=== PATIENT | female | born 1960 | race Caucasian/White ===

== ENCOUNTER 2017-09-01 14:26 | Emergency (ER) | payer MEDICAID ==
--- NOTE | 2017-09-01 15:31 | EDM.PDOC ---
ED HPI GENERAL MEDICAL PROBLEM - General Chief Complaint: General Stated Complaint: FEVER Time Seen by Provider: 09/01/17 15:00 Source of Information: Reports: Patient History Limitations: Reports: No Limitations - History of Present Illness INITIAL COMMENTS - FREE TEXT/NARRATIVE: Tammi Stevens comes into [facility] ED with a 2 day hx of fevers, some dizziness, and malaise. There is no reported headache, sore throat, cough, chest pain or SOB. There has been no nausea or vomiting, or voiding sxs. She stays at home and does watch 1 granddaughter. She has been taking Ibuprofen for fevers which has been partially effective. Headache Pain Score (Numeric/FACES): 6 - Related Data Allergies Allergy/AdvReac Type Severity Reaction Status Date / Time almond Allergy Airway Verified 09/01/17 14:52 Tightness aspartame Allergy Airway Verified 08/10/13 01:55 Tightness Home Meds: Home Meds Albuterol [Proventil HFA] 2 puff INH Q4H PRN #1 inhaler 08/09/13 [Rx] Celecoxib [CeleBREX] 200 mg PO DAILY 08/10/13 [History] Furosemide 20 mg PO DAILY 08/10/13 [History] Pantoprazole Sodium 40 mg PO DAILY 08/10/13 [History] Albuterol Sulfate [Albuterol Sulfate HFA] 8.5 gm IH Q4H #1 hfa.aer.ad 12/04/14 [ Rx] Azithromycin 250 mg PO DAILY #4 tablet 12/04/14 [Rx] Loratadine 10 mg PO DAILY #30 tablet 12/04/14 [Rx] predniSONE [Prednisone] 20 mg PO DAILY #7 tablet 12/04/14 [Rx] ED ROS GENERAL - Review of Systems Review Of Systems: ROS reveals no pertinent complaints other than HPI. ED EXAM, GENERAL - Physical Exam Exam: See Below Exam Limited By: No Limitations General Appearance: Alert, WD/WN, No Apparent Distress, Obese Eye Exam: Bilateral Eye: Conjunctival Injection, EOMI, PERRL Ears: Normal External Exam, Normal TMs Nose: Normal Inspection Throat/Mouth: Normal Inspection, Normal Lips, Normal Teeth, Normal Gums, Normal Oropharynx, Normal Voice, No Airway Compromise Head: Normocephalic Neck: Normal Inspection, Supple, Non-Tender Respiratory/Chest: No Respiratory Distress, Lungs Clear, Normal Breath Sounds, No Accessory Muscle Use, Chest Non-Tender Cardiovascular: Regular Rate, Rhythm, No Edema, No Murmur GI/Abdominal: Normal Bowel Sounds, Non-Tender, No Organomegaly, No Distention, No Mass (Female) Exam: Deferred Rectal (Female) Exam: Deferred Back Exam: Normal Inspection Extremities: Normal Inspection Neurological: Alert, Oriented, CN II-XII Intact, Normal Cognition, No Motor/ Sensory Deficits Psychiatric: Normal Affect, Normal Mood Skin Exam: Warm, Dry Lymphatic: No Adenopathy Course - Vital Signs Text/Narrative:: Following assessment at the [facility] ED, screening labs including CBC, BMP, and UA were obtained. There is some elements of the UA suggestive of a UTI, and Tammi Stevens was administered Bactrim DS 2 tabs pending results of UC. Last Recorded V/S: Last Vital Signs Temp 37.5 C 09/01/17 14:35 Pulse 70 09/01/17 14:35 Resp 20 09/01/17 14:35 BP 107/46 L 09/01/17 14:35 Pulse Ox 97 09/01/17 14:35 - Orders/Labs/Meds Orders: Active Orders 24 hr Category Date Time Status CBC WITH AUTO DIFF [HEME] Stat Lab 09/01/17 15:35 Results CULTURE URINE [RM] Stat Lab 09/01/17 16:11 Ordered URINALYSIS W/MICROSCOPIC [UA W/MICROSCOPIC] [URIN] Stat Lab 09/01/17 15:45 Ordered Sulfamethoxazole/Trimethoprim [Septra DS] Med 09/01/17 16:16 Once 2 tab PO ONETIME ONE Labs: Laboratory Tests 09/01/17 09/01/17 09/01/17 Range/Units 15:35 15:35 15:45 WBC 12.8 H (4.5-12.0) X10-3/uL RBC 4.35 (3.23-5.20) x10(6)uL Hgb 13.1 (11.5-15.5) g/dL Hct 39.0 (30.0-51.3) % MCV 89.7 (80-96) fL MCH 30.1 (27.7-33.6) pg MCHC 33.5 (32.2-35.4) g/dL RDW 14.7 (11.5-15.5) % Plt Count 214 (125-369) X10(3)uL MPV 8.2 (7.4-10.4) fL Add Manual Diff Yes Sodium 138 (135-145) mmol/L Potassium 3.9 (3.5-5.3) mmol/L Chloride 103 (100-110) mmol/L Carbon Dioxide 28 (21-32) mmol/L BUN 25 H (7-18) mg/dL Creatinine 1.2 H (0.55-1.02) mg/dL Est Cr Clr Drug Dosing 40.42 mL/min Estimated GFR (MDRD) 46 L (>60) BUN/Creatinine Ratio 20.8 H (9-20) Glucose 142 H (80-116) mg/dL Calcium 8.8 (8.6-10.2) mg/dL Urine Color Yellow (YELLOW) Urine Appearance Cloudy (CLEAR) Urine pH 7.0 H (5.0-6.5) Ur Specific [place] 1.010 (1.010-1.025) Urine Protein Negative (NEGATIVE) mg/dL Urine Glucose (UA) Normal (NEGATIVE) mg/dL Urine Ketones Negative (NEGATIVE) mg/dL Urine Occult Blood Moderate H (NEGATIVE) Urine Nitrite Negative (NEGATIVE) Urine Bilirubin Negative (NEGATIVE) Urine Urobilinogen Normal (NEGATIVE) mg/dL Ur Leukocyte Esterase Large H (NEGATIVE) Urine RBC 5-10 (0) Urine WBC 10-20 H (0) Ur Squamous Epith Cells Few H (NS,R,O) Urine Bacteria Many H (NS) Departure - Departure Time of Disposition: 16:19 Disposition: Home, Self-Care 01 Condition: Fair Clinical Impression: UTI, Urinary tract infectious disease, Febrile illness, acute - Discharge Information Referrals: Adriana German PA [Primary Care Provider] - Forms: ED Department Discharge - Problem List & Annotations (1) Febrile illness, acute SNOMED Code(s): 618650606 Code(s): R50.9 - FEVER, UNSPECIFIED Status: Acute Current Visit: Yes Annotation/Comment:: Tammi Stevens will continue to monitor temps and utilize routine fever therapy, hydration, and rest. (2) UTI, Urinary tract infectious disease SNOMED Code(s): 63553754 Code(s): N39.0 - URINARY TRACT INFECTION, SITE NOT SPECIFIED Status: Acute Current Visit: Yes Annotation/Comment:: Possible UTI, UC pending. She will follow up this weekend. - Problem List Review Problem List Initiated/Reviewed/Updated: Yes - My Orders Last 24 Hours: My Active Orders 09/01/17 15:35 CBC WITH AUTO DIFF [HEME] Stat 09/01/17 15:45 URINALYSIS W/MICROSCOPIC [UA W/MICROSCOPIC] [URIN] Stat 09/01/17 16:11 CULTURE URINE [RM] Stat 09/01/17 16:16 Sulfamethoxazole/Trimethoprim [Septra DS] 2 tab PO ONETIME ONE - Assessment/Plan Last 24 Hours: My Active Orders 09/01/17 15:35 CBC WITH AUTO DIFF [HEME] Stat 09/01/17 15:45 URINALYSIS W/MICROSCOPIC [UA W/MICROSCOPIC] [URIN] Stat 09/01/17 16:11 CULTURE URINE [RM] Stat 09/01/17 16:16 Sulfamethoxazole/Trimethoprim [Septra DS] 2 tab PO ONETIME ONE Plan: Follow up this weekend.
[2017-09-01] MEDS ORDERED: Sulfamethoxazole/Trimethoprim 800-160 MG Tab PO ONE (16:16)
[2017-09-01 16:43] VITALS: BP 141/70
== END 2017-09-01 16:40 | disposition home or self-care (01) ==
LOC: FB.ED 14:26
DX: N39.0 Urinary tract infection, site not specified (principal); Z79.899 Other long term (current) drug therapy; Z91.018 Allergy to other foods; Z88.8 Allergy status to other drugs, medicaments and biological substances
CPT/HCPCS: 36415; 80048; 81001; 85025; 87086; 87088; 87186; 99284; A9270

== ENCOUNTER 2018-10-02 06:22 | Emergency (ER) | payer MEDICAID ==
[2018-10-02] MEDS ORDERED: Diltiazem IR 30 MG Tab PO ONE (06:47)
[2018-10-02] MEDS ORDERED: Diltiazem 25 MG/5 ML SDV IVPUSH ONE (06:48)
[2018-10-02] MEDS ORDERED: Sodium Chloride 0.9% 10 ML Syringe FLUSH PRN (06:51)
--- NOTE | 2018-10-02 06:59 | EDM.PDOC ---
ED HPI GENERAL MEDICAL PROBLEM - General Chief Complaint: Cardiovascular Problem Stated Complaint: SOB Time Seen by Provider: 10/02/18 06:40 Source of Information: Reports: Patient, Old Records History Limitations: Reports: No Limitations - History of Present Illness INITIAL COMMENTS - FREE TEXT/NARRATIVE: Tammi comes into [facility] ED by POV with new onset sxs of chest pains in the upper chest, palpitations, dizziness, weakness, and some SOB this am. There is no fever, chills, sweats, wheezes, cough, or abdominal pain. She has no prior medical hx of cardiac dysrhythmia, cardiomyopathy, or valvular defect. She does not see a medical provider routinely. She does have a PMH of asthma, chronic dependent edema and morbid obesity. chest Pain Score (Numeric/FACES): 6 - Related Data Allergies Allergy/AdvReac Type Severity Reaction Status Date / Time almond Allergy Airway Verified 09/01/17 14:52 Tightness aspartame Allergy Airway Verified 08/10/13 01:55 Tightness Home Meds: Home Meds Albuterol [Proventil HFA] 2 puff INH Q4H PRN #1 inhaler 08/09/13 [Rx] Furosemide 40 mg PO DAILY 08/10/13 [History] Pantoprazole Sodium 40 mg PO DAILY 08/10/13 [History] Cyclobenzaprine [Flexeril] 10 mg PO TID PRN 10/11/17 [History] Meloxicam 7.5 mg PO DAILY 10/11/17 [History] Past Medical History HEENT History: Reports: Impaired Vision Cardiovascular History: Reports: Other (See Below) Other Cardiovascular History: SX CHRONIC EDEMA Respiratory History: Reports: Asthma Gastrointestinal History: Reports: G[employer] History: Reports: Musculoskeletal History: Reports: Arthritis, Back Pain, Chronic Endocrine/Metabolic History: Reports: Obesity/BMI 30+ Immunologic History: Reports: Other (See Below) Other Immunologic History: HX MRSA - Past Surgical History GI Surgical History: Reports: Cholecystectomy, Hernia, Abdominal Other GI Surgeries/Procedures: MULTIPLE HERNIORRAPHIES Female Surgical History: Reports: Hysterectomy, Tubal Ligation Social & Family History - Family History Family Medical History: Noncontributory - Caffeine Use Caffeine Use: Reports: None Caffeine Use Comment: Very rarely drinks soda. ED ROS GENERAL - Review of Systems Review Of Systems: See Below Constitutional: Reports: Malaise, Weakness HEENT: Reports: No Symptoms Respiratory: Reports: Shortness of Breath Cardiovascular: Reports: Chest Pain, Edema, Lightheadedness, Palpitations Endocrine: Reports: No Symptoms GI/Abdominal: Reports: No Symptoms : Reports: No Symptoms Musculoskeletal: Reports: No Symptoms Skin: Reports: No Symptoms Neurological: Reports: Dizziness Psychiatric: Reports: Anxiety Hematologic/Lymphatic: Reports: No Symptoms Immunologic: Reports: No Symptoms ED EXAM, GENERAL - Physical Exam Exam: See Below Exam Limited By: No Limitations General Appearance: Alert, WD/WN, Anxious, Mild Distress, Obese Eye Exam: Bilateral Eye: EOMI, Normal Inspection, PERRL Ears: Normal External Exam Nose: Normal Inspection Throat/Mouth: Normal Inspection, Normal Lips, Normal Oropharynx, Normal Voice, No Airway Compromise Head: Normocephalic Neck: Normal Inspection, Supple, Non-Tender, Full Range of Motion Respiratory/Chest: No Respiratory Distress, Lungs Clear, No Accessory Muscle Use , Chest Non-Tender, Decreased Breath Sounds Cardiovascular: No Gallop, No JVD, No Murmur, Tachycardia, Irregularly Irregular GI/Abdominal: Normal Bowel Sounds, Soft, Non-Tender, No Organomegaly, No Distention, No Mass (Female) Exam: Deferred Rectal (Female) Exam: Deferred Back Exam: Normal Inspection Extremities: Normal Inspection Neurological: Alert, Oriented, CN II-XII Intact, Normal Cognition, No Motor/ Sensory Deficits Psychiatric: Normal Affect, Anxious Skin Exam: Warm, Dry, Intact, Normal Color, No Rash, Other (dependent edema, chronic) Lymphatic: No Adenopathy Course - Vital Signs Text/Narrative:: Following assessment, IV access was obtained and a 12 lead EKG detected Atrial Fibrillation with RVR, rate 170-180's, 02 sats 95% on RA. I administered Cardiazem 33 mg IV over 2 minutes, with subsequent rate reduction into the 120' s within 5 minutes, and cardioversion within 30 minutes. She remained stable throughout the remainder of the ED visit. A portable Chest x ray was satisfactory. Follow up EKG noted NSR, VR 62 bpm. Screening labs included CBC and CMP, noting nonfasting BS 202 mg%, HgbA1c 6%, BUN 26, Cr 1.2, Troponin I < 0.017; BNP 70; results of echocardiogram pending. Last Recorded V/S: Last Vital Signs Temp 36.4 C 07/16/19 06:22 Pulse 163 H 10/02/18 06:22 Resp 26 H 10/02/18 06:22 BP 152/135 H 10/02/18 06:22 Pulse Ox 95 10/02/18 06:22 - Orders/Labs/Meds Orders: Active Orders 24 hr Category Date Time Status EKG Documentation Completion [RC] ASDIRECTED Care 10/02/18 06:53 Active Echo Comp wo Cont [US] Stat Exams 10/02/18 08:03 Taken Peripheral IV Insertion Adult [OM.PC] Routine Oth 10/02/18 06:51 Ordered EKG 12 Lead [EK] Routine Ther 10/02/18 06:52 Ordered Labs: Laboratory Tests 10/02/18 10/02/18 10/02/18 Range/Units 06:55 06:55 06:55 WBC 8.3 (4.5-12.0) X10-3/uL RBC 4.68 (3.23-5.20) x10(6)uL Hgb 14.6 (11.5-15.5) g/dL Hct 43.4 (30.0-51.3) % MCV 92.6 (80-96) fL MCH 31.2 (27.7-33.6) pg MCHC 33.7 (32.2-35.4) g/dL RDW 13.9 (11.5-15.5) % Plt Count 202 (125-369) X10(3)uL MPV 9.0 (7.4-10.4) fL Neut % (Auto) 53.7 (46-82) % Lymph % (Auto) 30.6 (13-37) % Cherry % (Auto) 10.1 (4-12) % Eos % (Auto) 1 (1.0-5.0) % Baso % (Auto) 5 H (0-2) % Neut # (Auto) 4.5 (1.6-8.3) # Lymph # (Auto) 2.5 (0.6-5.0) # Cherry # (Auto) 0.8 (0.0-1.3) # Eos # (Auto) 0.1 (0.0-0.8) # Baso # (Auto) 0.4 H (0.0-0.2) # PT 9.6 (8.7-11.1) INR 0.99 (0.89-1.13) Sodium 141 (135-145) mmol/L Potassium 4.0 (3.5-5.3) mmol/L Chloride 103 (100-110) mmol/L Carbon Dioxide 25 (21-32) mmol/L BUN 26 H (7-18) mg/dL Creatinine 1.2 H (0.55-1.02) mg/dL Est Cr Clr Drug Dosing TNP Estimated GFR (MDRD) 46 L (>60) BUN/Creatinine Ratio 21.7 H (9-20) Glucose 202 H (80-116) mg/dL Hemoglobin A1c (4.5-6.2) % Calcium 9.4 (8.6-10.2) mg/dL Total Bilirubin 0.9 (0.1-1.3) mg/dL AST 29 H (5-25) IU/L ALT 58 H (12-36) U/L Alkaline Phosphatase 93 (56-112) IU/L Troponin I (<0.017-0.056) ng/mL NT-Pro-B Natriuret Pep (<=125) pg/mL Total Protein 7.2 (6.0-8.0) g/dL Albumin 3.4 L (3.5-5.2) g/dL Globulin 3.8 g/dL Albumin/Globulin Ratio 0.9 10/02/18 10/02/18 Range/Units 06:55 06:55 WBC (4.5-12.0) X10-3/uL RBC (3.23-5.20) x10(6)uL Hgb (11.5-15.5) g/dL Hct (30.0-51.3) % MCV (80-96) fL MCH (27.7-33.6) pg MCHC (32.2-35.4) g/dL RDW (11.5-15.5) % Plt Count (125-369) X10(3)uL MPV (7.4-10.4) fL Neut % (Auto) (46-82) % Lymph % (Auto) (13-37) % Cherry % (Auto) (4-12) % Eos % (Auto) (1.0-5.0) % Baso % (Auto) (0-2) % Neut # (Auto) (1.6-8.3) # Lymph # (Auto) (0.6-5.0) # Cherry # (Auto) (0.0-1.3) # Eos # (Auto) (0.0-0.8) # Baso # (Auto) (0.0-0.2) # PT (8.7-11.1) INR (0.89-1.13) Sodium (135-145) mmol/L Potassium (3.5-5.3) mmol/L Chloride (100-110) mmol/L Carbon Dioxide (21-32) mmol/L BUN (7-18) mg/dL Creatinine (0.55-1.02) mg/dL Est Cr Clr Drug Dosing Estimated GFR (MDRD) (>60) BUN/Creatinine Ratio (9-20) Glucose (80-116) mg/dL Hemoglobin A1c 6.0 (4.5-6.2) % Calcium (8.6-10.2) mg/dL Total Bilirubin (0.1-1.3) mg/dL AST (5-25) IU/L ALT (12-36) U/L Alkaline Phosphatase (56-112) IU/L Troponin I < 0.017 L (<0.017-0.056) ng/mL NT-Pro-B Natriuret Pep 70 (<=125) pg/mL Total Protein (6.0-8.0) g/dL Albumin (3.5-5.2) g/dL Globulin g/dL Albumin/Globulin Ratio Meds: Medications Discontinued Medications Generic Name Dose Route Start Last Admin Trade Name Freq PRN Reason Stop Dose Admin Diltiazem HCl 33 mg 10/02/18 06:47 10/02/18 07:06 Cardizem PO 10/02/18 06:48 Not Given ONETIME ONE Diltiazem HCl 33 mg 10/02/18 06:48 10/02/18 06:51 Diltiazem IVPUSH 10/02/18 06:49 33 mg ONETIME ONE Administration Sodium Chloride 1,000 mls @ 200 mls/hr 10/02/18 07:00 10/02/18 07:05 Normal Saline IV 10/03/18 11:59 200 mls/hr ASDIRECTED ALIDA Administration Sodium Chloride 10 ml 10/02/18 06:51 10/02/18 06:51 Saline Flush FLUSH 10 ml ASDIRECTED PRN Administration Keep Vein Open Departure - Departure Time of Disposition: 10:29 Disposition: Home, Self-Care 01 Condition: Good Clinical Impression: Atrial fibrillation with RVR Instructions: Atrial Fibrillation, [id number] Referrals: Adriana German PA [Primary Care Provider] - Forms: ED Department Discharge Additional Instructions: Follow up Scheduled for September with Symone Cazares at 09:30 A.M. [place] [phone] Avoid Caffeine No decongestants - Problem List & Annotations (1) Atrial fibrillation with RVR SNOMED Code(s): 167951228324317 Code(s): I48.91 - UNSPECIFIED ATRIAL FIBRILLATION Status: Acute Annotation/Comment:: Tammi completed an echo before discharge, and was asx. She will follow up with PCP on October 04 to continue assessment and managment. - Problem List Review Problem List Initiated/Reviewed/Updated: Yes - My Orders Last 24 Hours: My Active Orders 10/02/18 06:51 Peripheral IV Insertion Adult [OM.PC] Routine 10/02/18 06:52 EKG 12 Lead [EK] Routine 10/02/18 06:53 EKG Documentation Completion [RC] ASDIRECTED 10/02/18 08:03 Echo Comp wo Cont [US] Stat - Assessment/Plan Last 24 Hours: My Active Orders 10/02/18 06:51 Peripheral IV Insertion Adult [OM.PC] Routine 10/02/18 06:52 EKG 12 Lead [EK] Routine 10/02/18 06:53 EKG Documentation Completion [RC] ASDIRECTED 10/02/18 08:03 Echo Comp wo Cont [US] Stat Plan: Follow up with PCP this week.
[2018-10-02] MEDS ORDERED: Sodium Chloride 0.9% 1,000 ML IV SCH (07:00)
[2018-10-02 07:17] VITALS: BP 152/135; PULSE 163
--- NOTE | 2018-10-02 11:00 | CR ---
INDICATION: New onset atrial fibrillation. CHEST: An AP upright view of the chest was obtained 10/02/18 and compared with 08/09/13 and 03/25/12, again revealing evidence of exogenous obesity. The left ventricle appeared to be somewhat more prominent than on the previous study. There may be a mild degree of overall cardiac enlargement. The aorta is slightly tortuous. Overlying EKG leads are noted. A definite active infiltrate or effusion was not identified. IMPRESSION: No acute process - findings as noted above. MTDD
== END 2018-10-02 11:00 | disposition home or self-care (01) ==
LOC: FB.ED 06:22
DX: I48.2 Chronic atrial fibrillation (principal); J45.909 Unspecified asthma, uncomplicated; K21.9 Gastro-esophageal reflux disease without esophagitis; Z91.018 Allergy to other foods; Z91.09 Other allergy status, other than to drugs and biological substances; Z79.899 Other long term (current) drug therapy
CPT/HCPCS: 36415; 71045; 80053; 83036; 83880; 84484; 85025; 85610; 93005; 93306; 96361; 96374; 99285; J3490; J7030

== ENCOUNTER 2021-05-05 00:50 | Emergency (ER) | payer MEDICAID | END 2021-05-05 01:19 | disposition left against medical advice (07) | LOC: FB.ED 00:50 | DX: Z53.21 Procedure and treatment not carried out due to patient leaving prior to being seen by health care provider (principal) ==

== ENCOUNTER 2021-11-18 12:59 | Emergency (ER) | payer MEDICAID ==
[2021-11-18 13:07] VITALS: PULSE 74
[2021-11-18] MEDS ORDERED: Albuterol 0.083% 2.5 MG/3 ML Neb Soln NEB STA (13:16)
[2021-11-18] MEDS ORDERED: EPINEPHrine 1 MG/ML SDV IM ONE (13:24)
[2021-11-18] MEDS ORDERED: predniSONE 20 MG Tab PO ONE (13:38)
[2021-11-18] MEDS ORDERED: diphenhydrAMINE 25 MG Cap PO ONE (14:21)
[2021-11-18 15:40] VITALS: BP 120/62
== END 2021-11-18 14:55 | disposition home or self-care (01) ==
LOC: FB.ED 12:59
DX: R09.3 Abnormal sputum (principal); K21.9 Gastro-esophageal reflux disease without esophagitis; E66.9 Obesity, unspecified; Z91.018 Allergy to other foods; Z88.8 Allergy status to other drugs, medicaments and biological substances
CPT/HCPCS: 96372; 99284; A9270-GY; J0171; J7512

== ENCOUNTER 2023-05-31 12:39 | Emergency (ER) | payer MEDICAID ==
[2023-05-31] MEDS ORDERED: Sodium Chloride 0.9% 10 ML Syringe FLUSH PRN (12:46)
[2023-05-31 13:11] LABS: BASOPHILS PERCENT AUTO 0.3 % (0.2-1.5); EOSINOPHILS ABSOLUTE AUTO 0.1 x10-3/uL (0.0-0.8); EOSINOPHILS PERCENT AUTO 1.3 % (0.6-8.1); HEMATOCRIT 42.3 % (34.2-48.2); HEMOGLOBIN 14.3 g/dL (11.4-15.5); LYMPHOCYTES PERCENT AUTO 11.2 % (18.4-52.1); MEAN CORPUSCULAR HGB CONC 33.8 g/dL (31.9-34.8); MEAN CORPUSCULAR VOLUME 91.9 fL (76.7-100.5); MEAN PLATELET VOLUME 7.8 fL (7.1-12.4); MONOCYTES ABSOLUTE AUTO 0.9 x10-3/uL (0.3-1.0); MONOCYTES PERCENT AUTO 9.8 % (4.4-15.7); NEUTROPHILS ABSOLUTE AUTO 7.1 x10-3/uL (1.5-6.3); NEUTROPHILS PERCENT AUTO 77.4 % (30.8-76.2); PLATELET COUNT,PLT 201 x10(3)uL (151-488); RED CELL DISTRIBUTION WIDTH 14.6 % (12.3-16.5); WHITE BLOOD CELL COUNT,WBC 9.1 x10-3/uL (3.0-10.3)
[2023-05-31] MEDS: Atropine/Diphenoxylate 0.025-2.5 MG Tab PO ONE (13:14)
[2023-05-31] MEDS: Sodium Chloride 0.9% 1,000 ML IV SCH (13:15)
[2023-05-31 13:16] LABS: BLOOD UREA NITROGEN,BUN 18 mg/dL (7-18); BUN/CREATININE RATIO 13.8 (9-20); CARBON DIOXIDE,CO2 28 mmol/L (21-32); CHLORIDE,CL 100 mmol/L (100-110); CREATININE 1.3 mg/dL (0.55-1.02); ESTIMATED GFR 46 mL/min (>60); GLUCOSE RANDOM 208 mg/dL (80-116); POTASSIUM,K 3.6 mmol/L (3.5-5.3); SODIUM,NA 138 mmol/L (135-145)
[2023-05-31 13:23] LABS: A/G RATIO 0.6; ALANINE AMINOTRANSFERASE,ALT 71 U/L (12-36); ALBUMIN 2.8 g/dL (3.2-4.6); ALKALINE PHOSPHATASE 83 IU/L (56-112); AMYLASE 28 U/L (25-115); ASPARTATE AMNIOTRANSFERASE,AST 60 IU/L (5-25); BILIRUBIN TOTAL 1.1 mg/dL (0.1-1.3); PROTEIN TOTAL,TP 7.3 g/dL (6.0-8.0)
[2023-05-31] MEDS: Ondansetron 4 MG/2 ML SDV IVPUSH ONE (13:32)
[2023-05-31] MEDS: Ketorolac 30 MG/ML SDV IVPUSH ONE (13:35)
[2023-05-31] MEDS: Pantoprazole 40 MG Vial IVPUSH STA (13:39)
[2023-05-31 15:09] VITALS: BP 119/72; PULSE 59
== END 2023-05-31 15:05 | disposition home or self-care (01) ==
LOC: FB.ED 12:39
DX: K52.9 Noninfective gastroenteritis and colitis, unspecified (principal); E86.0 Dehydration; J45.909 Unspecified asthma, uncomplicated; K21.9 Gastro-esophageal reflux disease without esophagitis; E66.9 Obesity, unspecified; Z90.710 Acquired absence of both cervix and uterus; Z79.899 Other long term (current) drug therapy; Z88.8 Allergy status to other drugs, medicaments and biological substances; Z91.018 Allergy to other foods
CPT/HCPCS: 36415; 80053; 82150; 83690; 85025; 93005; 93010; 96361; 96374; 96375; 99283; 99284-25; A9270-GY; C9113; J1885; J2405; J7030

== ENCOUNTER 2025-02-25 06:59 | Day surgery (SDC) | payer MEDICAID, MEDICARE ==
[2025-02-25] MEDS ORDERED: Sodium Chloride 0.9% 10 ML Syringe FLUSH PRN (07:00)
[2025-02-25] MEDS ORDERED: fentaNYL 100 MCG/2 ML SDV IV ONE (07:00)
[2025-02-25] MEDS ORDERED: Midazolam 1 MG/ML 2 ML SDV IV ONE (07:00)
[2025-02-25 07:54] VITALS: BP 160/87; PULSE 62
[2025-02-25] MEDS: Lactated Ringers 1,000 ML IV PRN (08:10)
[2025-02-25] MEDS: acetaZOLAMIDE 500 MG Cap.ER PO ONE (09:13)
== END 2025-02-25 09:50 | disposition home or self-care (01) ==
LOC: FB.SDS 06:59
PROVIDERS: ATTEND Ophthalmology
DX: E11.36 Type 2 diabetes mellitus with diabetic cataract (principal); H25.813 Combined forms of age-related cataract, bilateral; Z79.82 Long term (current) use of aspirin; Z79.84 Long term (current) use of oral hypoglycemic drugs; Z79.899 Other long term (current) drug therapy; Z87.891 Personal history of nicotine dependence
CPT/HCPCS: 00142; 66984; 82947; A9270; J2250; J3010; J7120; V2632